=== PATIENT | female | born 1960 | race Caucasian/White ===

== ENCOUNTER → 2023-09-27 18:18 | Outpatient (REF) | payer OTHER, SELFPAY | LOC: RAD 18:18 | PROVIDERS: ATTENDING PHYSICIAN Dermatology; FAMILY PHYSICIAN Family Medicine | DX: C43.59 Malignant melanoma of other part of trunk (principal) | CPT/HCPCS: 71046 ==

== ENCOUNTER → 2024-02-10 06:31 | Day surgery (SDC) | payer OTHER, SELFPAY ==
[2024-02-10 07:22] LABS: Glucose - Point of Care 197 mg/dl (70-99)
== END ==
LOC: GI 06:31
PROVIDERS: ATTENDING PHYSICIAN Internal Medicine Gastroenterology
DX: R19.4 Change in bowel habit (principal); D12.2 Benign neoplasm of ascending colon; Q43.8 Other specified congenital malformations of intestine
CPT/HCPCS: 45385; 88305; 82962

== ENCOUNTER 2024-03-03 06:27 | Day surgery (SDC) | payer OTHER, SELFPAY ==
[2024-02-27 07:22] VITALS: BMI 33.2
[2024-02-27 08:46] LABS: Hemoglobin 13.7 g/dL (12.0-16.0); Mean Corp Hgb Conc. 35.1 g/dL (33.0-37.0); Mean Corpuscular Hgb 32.8 pg (27.0-31.0); Mean Corpuscular Volume 93.3 fL (81.0-99.0); Mean Platelet Volume 10.6 fL (7.4-10.4); Platelet Count 204 10^3/uL (130-400); Red Blood Cell Count 4.18 10^6/uL (4.20-5.40); Red Cell Dist. Width 11.4 % (11.5-14.5); White Blood Cell Count 4.5 10^3/uL (4.8-10.8)
[2024-02-27 09:35] LABS: Blood Urea Nitrogen 19 mg/dl (7-17); Calcium 10.2 mg/dl (8.4-10.2); Carbon Dioxide 23 mmol/L (22-30); Chloride 104 mmol/L (98-107); Estimated Creatinine Clearance 124 ml/min; Glucose 200 mg/dl (70-99); Potassium 4.6 mmol/L (3.5-5.1); Sodium 137 mmol/L (135-145); eGFR > 60.00
[2024-03-03] VITALS (10 sets, daily range): BP systolic 138–155; BP diastolic 63–72; BMI 33.2
[2024-03-03] MEDS: NORMOSOL-R 1000 IV (09:50)
[2024-03-03] MEDS: Pyridium 200 MG PO (09:54)
[2024-03-03 09:55] LABS: Glucose - Point of Care 304 mg/dl (70-99)
[2024-03-03] MEDS: HEPARIN 5000 UNITS SC (10:34)
[2024-03-03] MEDS: NOVOLOG vial 6 UNITS SC (10:43)
[2024-03-03 12:57] LABS: Glucose - Point of Care 222 mg/dl (70-99)
[2024-03-03 14:56] LABS: Glucose - Point of Care 246 mg/dl (70-99)
[2024-03-03] MEDS: NOVOLOG vial 4 UNITS SC (15:12)
== END 2024-03-03 17:42 | disposition home or self-care (01) ==
LOC: SDS 06:27
PROVIDERS: ATTENDING PHYSICIAN Obstetrics & Gynecology; FAMILY PHYSICIAN Family Medicine
DX: N81.3 Complete uterovaginal prolapse (principal); N39.3 Stress incontinence (female) (male); N95.2 Postmenopausal atrophic vaginitis; N36.41 Hypermobility of urethra; N80.03 Adenomyosis of the uterus; N84.0 Polyp of corpus uteri
CPT/HCPCS: 57425; 58571; 57250; 57288; 88305; 80048; 82962; 85027; 86850; 86900; 86901; 93005; C1763; C1771

== ENCOUNTER → 2024-07-31 15:38 | Outpatient (REF) | payer OTHER, SELFPAY | LOC: WDC 15:38 | PROVIDERS: ATTENDING PHYSICIAN Obstetrics & Gynecology; FAMILY PHYSICIAN Family Medicine | DX: Z12.31 Encounter for screening mammogram for malignant neoplasm of breast (principal) | CPT/HCPCS: 77063; 77067 ==

== ENCOUNTER → 2024-12-11 16:27 | Outpatient (REF) | payer OTHER, SELFPAY | LOC: RAD 16:27 | PROVIDERS: ATTENDING PHYSICIAN Dermatology; FAMILY PHYSICIAN Family Medicine | DX: Z85.820 Personal history of malignant melanoma of skin (principal) | CPT/HCPCS: 71046 ==

== ENCOUNTER → 2025-01-01 07:14 | Outpatient (REF) | payer OTHER, SELFPAY | LOC: HWRCS 07:14 | PROVIDERS: ATTENDING PHYSICIAN Internal Medicine Cardiovascular Disease; FAMILY PHYSICIAN Family Medicine | DX: R94.31 Abnormal electrocardiogram [ECG] [EKG] (principal) | CPT/HCPCS: 93306 ==